=== PATIENT | female | born 1960 | race African-American/Black ===

== ENCOUNTER 2018-02-14 17:44 | Emergency (ER) | payer BC, OTHER ==
[2018-02-14 18:07] VITALS: BP 118/72; PULSE 87; TEMP 99; BMI 39.9
--- NOTE | 2018-02-14 19:28 | PDOC ---
History of Present Illness - General Chief Complaint: Pain Stated Complaint: LEFT KNEE PAIN Time Seen by Provider: 02/14/18 18:54 - History of Present Illness Initial Comments: 02/14/18 19:23 57-year-old female presents for evaluation of left knee pain after a fall about a week ago. She states she fell she didn't have that much pain however her knee began to swell and he come increasingly stiff on her. Past History - Past Medical History Allergies/Adverse Reactions: Allergies Allergy/AdvReac Type Severity Reaction Status Date / Time No Known Allergies Allergy Verified 02/14/18 18:04 Home Medications: Ambulatory Orders Azithromycin [Zithromax Z-RICARDO (5 DAYS) -] 250 mg PO ASDIR #6 tablet 06/24/12 No Home Medications 0 dose .ROUTE UTDICT 06/24/12 Ibuprofen [Motrin -] 600 mg PO TID #30 tablet 02/14/18 - Immunization History Immunization Up to Date: Yes - Suicide/Smoking/Psychosocial Hx Smoking Status: No Smoking History: Never smoked Number of Cigarettes Smoked Daily: 0 Cigars Per Day: 0 Hx Alcohol Use: No Drug/Substance Use Hx: No Review of Systems - Review of Systems Musculoskeletal: Yes: See HPI, Joint Pain All Other Systems: Reviewed and Negative *Physical Exam - Vital Signs Last Vital Signs Temp Pulse Resp BP Pulse Ox 99.0 F 87 20 118/72 979 H 02/14/18 18:04 02/14/18 18:04 02/14/18 18:04 02/14/18 18:04 02/14/18 18:04 - Physical Exam Comments: 02/14/18 19:24 Left knee skin color and temperature are normal there is a small superficial abrasion on the anterior medial aspect of the left knee. There is a prepatellar effusion. No intra-articular effusion is appreciated. No mediolateral joint line tenderness. There is mild tenderness about the anterior aspect of the patella. Her extensor mechanism is intact. No evidence of instability thigh and The soft and nontender normal hip and ankle range of motion negative straight leg raise test. She's neurovascularly intact. ED Treatment Course - RADIOLOGY Radiology Studies Ordered: Category Date Time Status KNEE 3 POS-LEFT [RAD] Stat Radiology 02/14/18 18:56 Completed Medical Decision Making - Medical Decision Making 02/14/18 19:25 Aseptically the knee was prepped with Betadine away from the area of the abrasion at the at the anterior lateral aspect of the patella. 25 mL of searing when his foot was aspirated a dry sterile dressing and a compression wrap were placed. This was tolerated well and done without complication. Post procedure and instructions were given. She'll wrap to sleep I will place her on a short course of anti-inflammatories and have her follow-up with orthopedic surgery *DC/Admit/Observation/Transfer Diagnosis at time of Disposition: Knee contusion, Prepatellar bursitis of left knee - Discharge Dispostion Disposition: HOME Condition at time of disposition: Stable Decision to Admit order: No - Referrals Referrals: Julia Dias MD [Primary Care Provider] - Chico Wilson MD [Staff Physician] - - Patient Instructions Additional Instructions: Return to the emergency room should symptoms worsen or go unresolved. I've placed on a short course of an anti-inflammatory. One tablet 3 times a day with food. Please discontinue the medication if it bothers her stomach. Follow-up with orthopedic surgery in 2-3 days for further evaluation and treatment options. Do not sleep with a compression wrap that I have applied today on your leg. Removed the before bedtime. - Post Discharge Activity
== END 2018-02-14 19:43 | disposition home or self-care (01) ==
LOC: JERFT 17:44
DX: S80.02XA Contusion of left knee, initial encounter (principal); S80.212A Abrasion, left knee, initial encounter; W19.XXXA Unspecified fall, initial encounter; Y93.89 Activity, other specified; Y92.89 Other specified places as the place of occurrence of the external cause; Y99.8 Other external cause status; M70.42 Prepatellar bursitis, left knee
CPT/HCPCS: 73562-TC-LT-FY; 99281-25

== ENCOUNTER 2018-02-23 15:33 | Emergency (ER) | payer OTHER ==
--- NOTE | 2018-02-23 15:51 | PDOC ---
Rapid Medical Evaluation Chief Complaint: Injury Time Seen by Provider: 02/23/18 15:46 Medical Evaluation: Allergies Allergy/AdvReac Type Severity Reaction Status Date / Time No Known Allergies Allergy Verified 02/14/18 18:04 02/23/18 15:46 I have performed a brief in person evaluation of this patient. The patient presents with a CC of: left pain Pt is a 57 YO female who states she was evaluated here last week and had her "knee drained." She states that the edema and pain have returned. She states the area is erythematous. Denies fever/chills. Denies hx of DM. Pain 06/04 PE: Ambulated to exam room. Skin: over left knee is warm to the touch, flesh colored Lungs: Clear Heart: RRR MS: focused on the left knee. Pt has moderate effusion. Pt can flex and extend without difficulty Psych: Age appropriate. The patient will proceed to the ED for further evaluation. Discharge Disposition - Diagnosis Knee effusion, left - Referrals Referrals: Julia Dias MD [Primary Care Provider] - - Patient Instructions - Post Discharge Activity
[2018-02-23 15:54] VITALS: BP 136/81; PULSE 69; TEMP 98.4; BMI 39.9
--- NOTE | 2018-02-23 16:47 | PDOC ---
Attending Attestation - Resident Resident Name: Bill Reid - ED Attending Attestation I have performed the following: I have examined & evaluated the patient, The case was reviewed & discussed with the resident, I agree w/resident's findings & plan, Exceptions are as noted - HPI HPI: 02/23/18 17:46 Ms Danny Figueredo is a 57 yo F who presents to the ER for evaluation of left knee pain Briefly, she fell approximately 2 weeks ago. She was seen in urgent care on where she noted knee swelling S/p knee drainage Pt reports increased swelling No limitations in range of motion She has pain with bearing weight No fevers or chills No additional traumatic injuries - Physicial Exam PE: 02/23/18 17:58 GENERAL: The patient is in no acute distress. LUNGS: Breath sounds equal, clear to auscultation bilaterally. No wheezes, and no crackles. HEART:Regular rate and rhythm ABDOMEN: Soft, nontender EXTREMITIES: Normal range of motion, Left knee swollen, no erythema anterior and lateral to the patella, soft swelling noted Pt leg warm, no calf swelling noted NEUROLOGICAL: Cranial nerves II through XII grossly intact. Normal speech. No focal neurological deficits. SKIN: no rash or skin lesions - Medical Decision Making 02/23/18 17:59 57 yo F s/p injury to the knee with resulting ?prepatellar bursitis Bursa drained Pt presents with recurrence of swelling No signs of septic bursitis ? fluid re accumulation Will consult ortho Will plan to d/c home
[2018-02-23] MEDS ORDERED: IBUPROFEN 600 MG TABLET (FP) PO ONE ×2 (16:48→17:39)
--- NOTE | 2018-02-23 17:51 | PDOC ---
History of Present Illness - General Chief Complaint: Injury Stated Complaint: RIGHT KNEE PAIN Time Seen by Provider: 02/23/18 15:46 History Source: Patient Exam Limitations: No Limitations - History of Present Illness Initial Comments: 02/23/18 18:19 Pt is a 57yo f with no significant PMH presenting to ED with L knee swelling and pain with weight bearing. Pt fell a few weeks ago and was seen in ED one week ago on February 14. Knee was drained (25cc). Pt was dc home with ortho follow up. Pt returns today for similar complaints. She was unable to make ortho appointment. She denies decreased ROM, pain with ROM, fever, chills, pain/ swelling in other joints. Pt just admits to pain when standing. PMD: [place] PMH: none PSH: none Meds: ibuprofen 600mg last taken yesterday Allergies: nkda Past History - Past Medical History Allergies/Adverse Reactions: Allergies Allergy/AdvReac Type Severity Reaction Status Date / Time No Known Allergies Allergy Verified 02/23/18 15:47 Home Medications: Ambulatory Orders No Home Medications 0 dose .ROUTE UTDICT 06/24/12 COPD: No - Immunization History Immunization Up to Date: Yes - Suicide/Smoking/Psychosocial Hx Smoking Status: No Smoking History: Never smoked Number of Cigarettes Smoked Daily: 0 Cigars Per Day: 0 Hx Alcohol Use: No Drug/Substance Use Hx: No Substance Use Type: None *Physical Exam - Vital Signs Last Vital Signs Temp Pulse Resp BP Pulse Ox 98.4 F 69 16 136/81 98 02/23/18 15:47 02/23/18 15:47 02/23/18 15:47 02/23/18 15:47 02/23/18 15:47 - Physical Exam Musculoskeletal: positive: Other (L lateral knee effusion, fluctuant, not erythematous, slightly warm, pre-patellar. ) ED Treatment Course - RADIOLOGY Radiology Studies Ordered: Category Date Time Status KNEE 4 POS-LEFT [RAD] Stat Radiology 02/23/18 16:48 Taken - Medications Given in the ED: ED Medications Discontinued Medications Generic Name Dose Route Start Last Admin Trade Name Freq PRN Reason Stop Dose Admin Ibuprofen 600 mg 02/23/18 16:48 02/23/18 17:45 Motrin - PO 02/23/18 16:49 600 mg ONCE ONE Administration Medical Decision Making - Medical Decision Making Pt is a 57yo f with no significant PMH presenting to ED with L knee swelling and pain with weight bearing. Pt fell a few weeks ago and was seen in ED one week ago on February 14. Knee was drained (25cc). Vitals: 136/81, HR69, RR16, 98%RA T98.4 PE: balloting of knee, slightly more warm compared to R knee, fluctuant, no overlying erythema, full ROM. No pain with passive or active ROM. No other joint effusion/swelling. DDx: effusion, fracture, bursitis, septic arthritis Low suspicion for septic arthritis given pt has full rom without pain, no overylying erythema and no fever. Pt is ambulatory, pain with weight-bearing only. -Will order Xray and give pt 600mg ibuprofen. 02/23/18 17:[address] Michele/Dr. Olivares office. Awaiting call back 02/23/18 18:30 Per ortho, low suspicion for infection. Options include draining with culture and gram stain + knee immobilizer or knee immobilizer and ortho follow up. Will discuss with patient 02/23/18 19:00 Ortho team drained fluid. Sent to lab for gram stain and culture. If gram stain negative, pt can be dc and f/u ortho in 1 week. If positive, will admit for iv abx. Signed out to night team *DC/Admit/Observation/Transfer Diagnosis at time of Disposition: Knee effusion, left - Discharge Dispostion Disposition: HOME Condition at time of disposition: Improved - Referrals Referrals: Julia Dias MD [Primary Care Provider] - David Olivares DO [Staff Physician] - Dawood Jeronimo DO [Staff Physician] - - Patient Instructions Printed Discharge Instructions: DI for Knee Effusion Additional Instructions: You were seen here for knee effusion. It was drained. It did not have bacteria in it. Please follow up with Dr. Jeronimo or Dr. Olivares in clinic in one week. You can call and make an appointment: Try to keep weight off the knee, but keep moving it around. Keep the immobilizer on when you are on your feet You can continue to take ibuprofen for pain. Come back to the emergency room if: pain gets worse, swelling is worse, you develop fever, you notice a rash or if any new concerning symptom develops. Thank you - Post Discharge Activity
[2018-02-23] MEDS ORDERED: LIDOCAINE HCL 1%, 10 MG/ML (50 mL VIAL) SQ ONE (18:38)
[2018-02-23] MEDS ORDERED: LIDOCAINE HCL 1%, 10 MG/ML (20ML VIAL) ONE (18:39)
--- NOTE | 2018-02-23 19:00 | CONSULT ---
Consult Consult Specialty:: Orthopedic Surgery Reason for Consultation:: Left knee pain and swelling - History of Present Illness Chief Complaint: Left knee pain and swelling History of Present Illness: Ariana Figueredo is a 57 year old female with no significant PMH. She presents to the ED with complains of left knee pain and swelling. She sustained a fall on 02/01/2018 while power walking and landed on her left knee. She was able to get up and ambulate after the fall. She noticed her left knee swell up a few days later and went to the [facility] ED on 02/14/2018 after there was no improvement in her symptoms. She was diagnosed with a knee contusion and prepatellar bursitis. He knee was aspirated and 25 mL of fluid was removed. According to the patient the fluid aspirated was "bloody." She was discharged home with ibuprofen and an laura wrap. Her knee pain improved but it became painful again a few days ago. She has been wrapping her knee daily and taking ibuprofen as prescribed without any improvement in symptoms. She has been able to weight bear and go to work. She works for the [employer] company. She denies any fever, chills, pain/swelling in other joints. - History Source History Provided By: Patient, Medical Record - Past Medical History Reproductive: Yes: Fibroids (History of fibroidectomy. No complications with anesthesia reported) Musculoskeletal: Yes: Other (history of right knee pain. Denies any complaints currently) - Past Surgical History Additional Surgical History: Fibroidectomy - Alcohol/Substance Use Hx Alcohol Use: No History of Substance Use: reports: None - Smoking History Smoking history: Never smoked Aproximately how many cigarettes per day: 0 - Social History ADL: Independent Occupation: aircraft worker Place of : [facility] [place] Home Medications - Allergies Allergies/Adverse Reactions: Allergies Allergy/AdvReac Type Severity Reaction Status Date / Time No Known Allergies Allergy Verified 02/23/18 15:47 - Home Medications Home Medications: Ambulatory Orders No Home Medications 0 dose .ROUTE UTDICT 06/24/12 Family Disease History - Family Disease History Family History: Denies Review of Systems - Review of Systems Constitutional: reports: No Symptoms Eyes: reports: No Symptoms HENT: reports: No Symptoms Neck: reports: No Symptoms Cardiovascular: reports: No Symptoms Respiratory: reports: No Symptoms Gastrointestinal: reports: No Symptoms Genitourinary: reports: No Symptoms Breasts: reports: No Symptoms Reported Musculoskeletal: reports: Joint Pain (as above), Joint Swelling Integumentary: reports: No Symptoms Neurological: reports: No Symptoms Endocrine: reports: No Symptoms Hematology/Lymphatic: reports: No Symptoms Psychiatric: reports: No Symptoms Physical Exam Vital Signs: Vital Signs Temperature 98.4 F 02/23/18 15:47 Pulse Rate 69 02/23/18 15:47 Respiratory Rate 16 02/23/18 15:47 Blood Pressure 136/81 02/23/18 15:47 O2 Sat by Pulse Oximetry (%) 98 02/23/18 15:47 Constitutional: Yes: Well Nourished, No Distress, Calm Cardiovascular: Yes: Regular Rate and Rhythm Respiratory: Yes: Regular Gastrointestinal: Yes: Soft Musculoskeletal: Yes: Joint Swelling (Examination of the left knee reveals a prepatellar effusion, intraarticular effusion and swelling of the proximal leg. The skin is warm, dry and intact; no lesion, rashes or ulcers noted. Muscle mass equal and symmetric to contralateral side. No atrophy noted. No masses noted. Positive tenderness to palpation over the patella. No cords or calf tenderness. No significant ankle edema. Full passive and active range of motion with mild pain with full flexion. Joint stable with no pathologic laxity. EHL/TA /GS motor intact. SITLT distally; 2+ DP pulses; Cap refill brisk. Painless range of motion and no TTP left hip or ankle. Patient able to SLR. Compartments soft and compressible) Extremities: Yes: WNL, Other ( Right Upper Extremity: Skin warm, dry, and intact ; no lesions, rashes or ulcers noted. Muscle mass equal and symmetric to contralateral side. No atrophy noted. No masses or effusions noted. No tenderness to palpation. Full passive and active ROM, free from pain. Joints stable with no pathologic laxity.M/R/U/MSK/AX motor intact; SILT distally; 2+ radial pulses; Cap refill brisk. Left Upper Extremity: Skin warm, dry, and intact; no lesions, rashes or ulcers noted. Muscle mass equal and symmetric to contralateral side. No atrophy noted. No masses or effusions noted. No tenderness to palpation. Full passive and active ROM, free from pain. Joints stable with no pathologic laxity.M/R/U/MSK/AX motor intact; SILT distally; 2+ radial pulses; Cap refill brisk. Right Lower Extremity: Skin warm , dry, and intact; no lesions, rashes or ulcers noted. Muscle mass equal and symmetric to contralateral side. No atrophy noted. No masses or effusions noted. No tenderness to palpation. No cords or calf tenderness. No significant calf/ankle edema. Full passive and active ROM, free from pain. Joints stable with no pathologic laxity.EHL/TA/GS motor intact; SILT distally; 2+ DP pulses; Cap refill brisk. Compartment soft and compressible upper and lower extremities.) Imaging - Results X-ray: Image Reviewed (Radiographs of the left knee were reviewed by me today. AP, lateral and sunrise views of the left knee show soft tissue swelling anterior to the patella. There is mild medial compartment and moderate patellofemoral compartment joint space narrowing with osteophyte formation. There is no fracture or dislocation.) Assessment/Plan Ariana Delgado is a 57 year old female with a left knee prepatellar bursitis and knee effusion. We discussed this diagnosis with the patient. We discussed treatment options including knee aspiration to rule out infection. The patient elected to proceed. Procedure Note for Left Knee Arthrocentesis. Consent was obtained after discussion of the risks, benefits, alternatives including bleeding, pain, infection, skin disruption. Laterality was confirmed ( timeout). The lateral aspect of the knee was prepped with betadyne. The subcutaneous tissue in the superolateral aspect of the knee was infiltrated with 3 mL of 1% lidocaine. A new needle was then introduced into the superolateral aspect of the knee and 40 mL of serosanguinous fluid was aspirated from the knee joint and prepatellar bursa. The site was cleaned and dressed with gauze and an laura wrap. A knee immobilizer was placed on the extremity. Recommendations -Follow up aspiration gram stain and cultures. May discharge home if gram stain negative. -WBAT in knee immobilizer. -Pain control All questions were answered. Thank you for involving our team in the care of this patient. If gram stain negative the patient can follow up in our office in 1 week after discharge. Please call me with any questions [phone]. David Olivares, DO Orthopedic Surgery
--- NOTE | 2018-02-23 19:20 | PDOC ---
*Physical Exam - Vital Signs Last Vital Signs Temp Pulse Resp BP Pulse Ox 98.4 F 69 16 136/81 98 02/23/18 15:47 02/23/18 15:47 02/23/18 15:47 02/23/18 15:47 02/23/18 15:47 ED Treatment Course - Medications Given in the ED: ED Medications Discontinued Medications Generic Name Dose Route Start Last Admin Trade Name Chaz PRN Reason Stop Dose Admin Ibuprofen 600 mg 02/23/18 16:48 02/23/18 17:45 Motrin - PO 02/23/18 16:49 600 mg ONCE ONE Administration Lidocaine HCl 5 ml 02/23/18 18:38 02/23/18 18:56 Xylocaine 1% SQ 02/23/18 18:39 5 ml ONCE ONE Administration Medical Decision Making - Medical Decision Making 02/23/18 19:[address] Jeronimo and Marshall regarding patients plan. Would like ancef started if positive stain, otherwise if negative, send home without antibiotics *DC/Admit/Observation/Transfer Diagnosis at time of Disposition: Knee effusion, left - Discharge Dispostion Disposition: HOME Condition at time of disposition: Improved - Referrals Referrals: Juila Dias MD [Primary Care Provider] - Dawood Jeronimo DO [Staff Physician] - David Olivares DO [Staff Physician] - - Patient Instructions Printed Discharge Instructions: DI for Knee Effusion Additional Instructions: You were seen here for knee effusion. It was drained. It did not have bacteria in it. Please follow up with Dr. Jeronimo or Dr. Olivares in clinic in one week. You can call and make an appointment: Try to keep weight off the knee, but keep moving it around. Keep the immobilizer on when you are on your feet You can continue to take ibuprofen for pain. Come back to the emergency room if: pain gets worse, swelling is worse, you develop fever, you notice a rash or if any new concerning symptom develops. Thank you - Post Discharge Activity
== END 2018-02-23 23:43 | disposition home or self-care (01) ==
LOC: JERFT 15:33 → JER 15:33
PROC: 0S9D3ZZ Drainage of Left Knee Joint, Percutaneous Approach (ICD-10-PCS; principal; 2018-02-23)
PROC: 2W3RXYZ Immobilization of Left Lower Leg using Other Device (ICD-10-PCS; 2018-02-23)
DX: M25.462 Effusion, left knee (principal)
CPT/HCPCS: 73564-TC-LT-FY; 87070; 87075; 87205; 99282-25

== ENCOUNTER 2018-10-20 20:50 | Emergency (ER) | payer OTHER ==
[2018-10-20 20:57] VITALS: TEMP 99.6; BMI 39.9
[2018-10-20] MEDS ORDERED: IBUPROFEN 600 MG TABLET (FP) PO ONE ×2 (20:57→21:53)
--- NOTE | 2018-10-20 20:59 | PDOC ---
Rapid Medical Evaluation Chief Complaint: Redness To Affected Area Time Seen by Provider: 10/20/18 20:55 Medical Evaluation: Allergies Allergy/AdvReac Type Severity Reaction Status Date / Time No Known Allergies Allergy Verified 10/20/18 20:57 Vital Signs Temp Pulse Resp BP Pulse Ox 99.6 F 110 H 18 127/79 96 10/20/18 20:54 10/20/18 20:54 10/20/18 20:54 10/20/18 20:54 10/20/18 20:54 10/20/18 20:58 I have performed a brief in-person evaluation of this patient. The patient presents with a chief complaint of: bump to leg Pertinent physical exam findings:stable and in NAD, non-focal I have ordered the following:labs, motrin The patient will proceed to the ED for further evaluation.
[2018-10-20] MEDS ORDERED: CEPHALEXIN MONOHYDRATE 500 MG CAPSULE (UD) PO ONE (22:23)
[2018-10-20] MEDS ORDERED: SULFAMETHOXAZOLE/TRIMETHOPRIM 800MG/160MG D.S. TABLET PO ONE (22:24)
[2018-10-20 22:27] LABS: BASO % 0.8 % (0-2.0); EOS % 0.2 % (0-4.5); HEMATOCRIT 38.3 % (32.4-45.2); HEMOGLOBIN 12.7 GM/dL (10.7-15.3); LYMPH % 27.2 % (8-40); MCH 29.5 pg (25.7-33.7); MCHC 33.1 g/dl (32.0-36.0); MEAN CELL VOLUME 89.1 fl (80-96); MEAN PLT VOLUME 8.6 fl (7.5-11.1); MONO % 11.6 % (3.8-10.2); NEUT % 60.2 % (42.8-82.8); PLATELET COUNT 258 K/MM3 (134-434); RDW 13.7 % (11.6-15.6); WHITE BLOOD COUNT 4.2 K/mm3 (4.0-10.0)
[2018-10-20] MEDS ORDERED: CEPHALEXIN MONOHYDRATE 500 MG CAPSULE (UD) ONE (22:32)
[2018-10-20] MEDS ORDERED: SULFAMETHOXAZOLE/TRIMETHOPRIM 800MG/160MG D.S. TABLET ONE (22:32)
[2018-10-20 23:02] LABS: ALBUMIN 3.8 g/dl (3.4-5.0); BILIRUBIN,TOTAL 0.4 mg/dL (0.2-1); BLOOD UREA NITROGEN 13.4 mg/dL (7-18); CALCIUM 8.6 mg/dL (8.5-10.1); CREATININE 0.8 mg/dL (0.55-1.3); TOT PROT 7.7 g/dl (6.4-8.2)
[2018-10-20] MEDS ORDERED: ACETAMINOPHEN 1000 MG/100 ML VIAL (NON FORMULARY) IVPB ONE (23:02)
[2018-10-20 23:03] LABS: POTASSIUM 4.4 mmol/L (3.5-5.1)
[2018-10-20] MEDS ORDERED: ACETAMINOPHEN INJECTION 100 ML IVPB ONE (23:04)
[2018-10-20 23:18] LABS: PLATELET ESTIMATE ADEQUATE
--- NOTE | 2018-10-20 23:44 | PDOC ---
Documentation entered by Genaro Escobar SCRIBE, acting as scribe for Jordan Lizarraga MD. Jordan Lizarraga MD: This documentation has been prepared by the Luz layton Xhesika, SCRIBE, under my direction and personally reviewed by me in its entirety. I confirm that the documentation accurately reflects all work, treatment, procedures, and medical decision making performed by me. History of Present Illness - General Chief Complaint: Redness To Affected Area Stated Complaint: L/LEG DISCOMFORT/SWOLLEN Time Seen by Provider: 10/20/18 20:55 History Source: Patient Exam Limitations: No Limitations - History of Present Illness Initial Comments: 10/20/18 22:25 The patient is a 57 year old female, with no significant PMH of who presents to the emergency department with 3 days of L buttock lesion that has progressively gotten worse. The patient reports chills and fever with tmax of 102 since Tuesday. The patient states the lesion is painful to sit on, however, Motrin and warm compressions have alleviated the pain. The patient denies recent travels, also denies shaving around the area. She reports a previous similar lesion in the past but states it went away with warm compresses. The patient denies chest pain, shortness of breath, headache and dizziness. Denies stiff neck, neck pain, rashes. Dneies cough, runny nose, sinus pain. Denies nausea, vomiting, diarrhea and constipation. Denies dysuria, frequency, urgency and hematuria. Allergies: NKA PCP: Ron Colby Past History - Past Medical History Allergies/Adverse Reactions: Allergies Allergy/AdvReac Type Severity Reaction Status Date / Time No Known Allergies Allergy Verified 10/20/18 20:57 Home Medications: Ambulatory Orders No Home Medications 0 dose .ROUTE UTDICT 06/24/12 Cephalexin [Keflex] 500 mg PO Q6H #28 capsule 10/21/18 Sulfamethoxazole/Trimethoprim [Bactrim Ds Tablet] 1 each PO BID #14 tablet 10/21 COPD: No - Immunization History Immunization Up to Date: Yes - Suicide/Smoking/Psychosocial Hx Smoking Status: No Smoking History: Never smoked Number of Cigarettes Smoked Daily: 0 Cigars Per Day: 0 Hx Alcohol Use: No Drug/Substance Use Hx: No Substance Use Type: None Review of Systems - Review of Systems Able to Perform ROS?: Yes Comments:: 10/20/18 22:25 GENERAL/CONSTITUTIONAL: (+) fevers. (+) chills. (+) sweats. No weakness. HEAD, EYES, EARS, NOSE AND THROAT: No change in vision. No ear pain or discharge. No sore throat. CARDIOVASCULAR: No chest pain or shortness of breath. RESPIRATORY: No cough, wheezing, or hemoptysis. GASTROINTESTINAL: No nausea, vomiting, diarrhea or constipation. GENITOURINARY: No dysuria, frequency, or change in urination. MUSCULOSKELETAL: No joint or muscle swelling or pain. No neck or back pain. SKIN: (+) L buttock lesion. NEUROLOGIC: No headache, vertigo, loss of consciousness, or change in strength/ sensation. ENDOCRINE: No increased thirst. No abnormal weight change. HEMATOLOGIC/LYMPHATIC: No anemia, easy bleeding, or history of blood clots. ALLERGIC/IMMUNOLOGIC: No hives or skin allergy. *Physical Exam - Vital Signs Last Vital Signs Temp Pulse Resp BP Pulse Ox 99.6 F 110 H 18 127/79 96 10/20/18 20:54 10/20/18 20:54 10/20/18 20:54 10/20/18 20:54 10/20/18 20:54 - Physical Exam Comments: 10/20/18 23:13 GENERAL: Awake, alert, and fully oriented, in no acute distress. Pleasant, watching videos on phone. EYES: PERRLA, EOMI, sclera anicteric, conjunctiva clear ENT: Auricles normal inspection, hearing grossly normal, nares patent, oropharynx clear without exudates. Moist mucosa NECK: Normal ROM, supple, no lymphadenopathy, JVD, or masses LUNGS: Breath sounds equal, clear to auscultation bilaterally. No wheezes, and no crackles HEART: Regular rate and rhythm, normal S1 and S2, no murmurs, rubs or gallops ABDOMEN: Soft, nontender, normoactive bowel sounds. No guarding, no rebound. No masses EXTREMITIES: Normal range of motion, no edema. No clubbing or cyanosis. No cords, erythema, or tenderness. WWP, 2+ pulses peripherally. NEUROLOGICAL: Normal speech, cranial nerves intact, equal strength and sensation b/l. Normal gait. SKIN: L buttock with 2 x 2 cm erythematous tender inudrated lesion with superficial central non draining ulcer. No fluctuance. ED Treatment Course - LABORATORY CBC & Chemistry Diagram: 10/20/18 22:00 10/20/18 22:00 - ADDITIONAL ORDERS Additional order review: Laboratory Results 10/20/18 22:00 Lactic Acid 1.1 10/20/18 22:00 RBC 4.30 MCV 89.1 MCHC 33.1 RDW 13.7 MPV 8.6 Neutrophils % 60.2 Lymphocytes % 27.2 Monocytes % 11.6 H Eosinophils % 0.2 Basophils % 0.8 - Medications Given in the ED: ED Medications Discontinued Medications Generic Name Dose Route Start Last Admin Trade Name Freq PRN Reason Stop Dose Admin Ibuprofen 600 mg 10/20/18 20:57 10/20/18 22:04 Motrin - PO 10/20/18 20:58 600 mg ONCE ONE Administration Medical Decision Making - Medical Decision Making 10/20/18 23:21 57yo F presents to the ED with cellulitis to L buttock. No fluctuance or area requiring drainage at this time Vitals with tachycardia, fever Labs wnl, no leukocytosis, lactic neg No other sources of infection and pt is over well appearing, non toxic Will cover with bactrim/keflex, recheck vitals after antipyretic 10/21/18 00:28 Vitals have normalized Pt is feeling better Requests DC home Pt to f/u in 48 hours for a wound check Well appearing, clinically stable for DC home I discussed the physical exam findings, ancillary test results and final diagnoses with the patient. I answered all of the patient's questions. The patient was satisfied with the care received and felt comfortable with the discharge plan and treatment plan. The patient will call their primary care physician within 24 hours to arrange follow-up and will return to the Emergency Department with any new, persistent or worsening symptoms. *DC/Admit/Observation/Transfer Diagnosis at time of Disposition: Cellulitis - Discharge Dispostion Disposition: HOME Condition at time of disposition: Stable Decision to Admit order: No - Prescriptions Prescriptions: Cephalexin [Keflex] 500 mg PO Q6H #28 capsule Sulfamethoxazole/Trimethoprim [Bactrim Ds Tablet] 1 each PO BID #14 tablet - Referrals Referrals: Ron Elizalde MD [Primary Care Provider] - - Patient Instructions Printed Discharge Instructions: DI for Cellulitis -- Adult Additional Instructions: You were found to have cellulitis which is an infection in the skin Take the antibiotics as prescribed Return in 48 hours for a wound check Return earlier if you have any new, worsening, or concerning symptoms such as persistent fevers or vomiting. - Post Discharge Activity - Attestations Physician Attestion: 10/21/18 00:39 I, Dr. Jordan Lizarraga MD, attest that this document has been prepared under my direction and personally reviewed by me in its entirety. I further attest, that it accurately reflects all work, treatment, procedures and medical decision -making performed by me.
[2018-10-20 23:59] VITALS: BP 121/65; PULSE 82
== END 2018-10-21 00:52 | disposition home or self-care (01) ==
LOC: JER 20:50
PROC: 3E033NZ Introduction of Analgesics, Hypnotics, Sedatives into Peripheral Vein, Percutaneous Approach (ICD-10-PCS; principal; 2018-10-20)
DX: L03.317 Cellulitis of buttock (principal)
CPT/HCPCS: 36415; 80053; 83605; 85025; 87040; 99281-25; J0131

== ENCOUNTER 2018-10-23 00:18 | Emergency (ER) | payer OTHER ==
[2018-10-23 01:06] VITALS: BP 125/74; PULSE 84; TEMP 98.4; BMI 39.9
--- NOTE | 2018-10-23 02:07 | PDOC ---
Suture Removal/Wound Check HPI - History of Present Illness Chief Complaint: Revisit,Wound Recheck Stated Complaint: ER FOLLOW-UP History Source: Yes: Patient Exam Limitations: Yes: No Limitations Date of Last ED visit: 10/20/18 Past History - Past Medical History Allergies/Adverse Reactions: Allergies Allergy/AdvReac Type Severity Reaction Status Date / Time No Known Allergies Allergy Verified 10/23/18 01:06 Home Medications: Ambulatory Orders No Home Medications 0 dose .ROUTE UTDICT 06/24/12 Cephalexin [Keflex] 500 mg PO Q6H #28 capsule 10/21/18 Sulfamethoxazole/Trimethoprim [Bactrim Ds Tablet] 1 each PO BID #14 tablet 10/21 COPD: No - Immunization History Immunization Up to Date: Yes - Suicide/Smoking/Psychosocial Hx Smoking Status: No Smoking History: Never smoked Have you smoked in the past 12 months: No Number of Cigarettes Smoked Daily: 0 Cigars Per Day: 0 Information on smoking cessation initiated: No Hx Alcohol Use: No Drug/Substance Use Hx: No Substance Use Type: None *Physical Exam - Vital Signs Last Vital Signs Temp Pulse Resp BP Pulse Ox 98.4 F 84 17 125/74 97 10/23/18 00:20 10/23/18 00:20 10/23/18 00:20 10/23/18 00:20 10/23/18 00:20 Medical Decision Making - Medical Decision Making 10/23/18 02:28 Patient is a 57-year-old female with no past medical history was seen in the emergency room on 10/20/2018 for cellulitis to her left buttocks associated with fever. She is here today for wound check. She has no complaints of fever however she states she still has body aches mostly on the right side, and still has pain to the buttocks. Also complains of headache which is frontal since ill. States she takes Motrin last dose was this morning and her headache goes away but now feels like it's coming back. She has not taken any Motrin since this morning. PMD: Dr. Abreu PMHX: neg PSOCHX: neg etoh, drug, cig ALL: NKDA Selected Entries 10/23/18 00:20 Temperature 98.4 F Pulse Rate 84 Respiratory 17 Rate Blood Pressure 125/74 O2 Sat by Pulse 97 Oximetry (%) GENERAL/CONSTITUTIONAL: No fever or chills. No weakness. No weight change. HEAD, EYES, EARS, NOSE AND THROAT: No change in vision. No ear pain or discharge. No sore throat. CARDIOVASCULAR: No chest pain or shortness of breath. RESPIRATORY: No cough, wheezing, or hemoptysis. GASTROINTESTINAL: No nausea, vomiting, diarrhea or constipation. No rectal bleeding. GENITOURINARY: No dysuria, frequency, or change in urination. MUSCULOSKELETAL: No joint or muscle swelling or pain. No neck or back pain. SKIN AND BREASTS: No rash or easy bruising. NEUROLOGIC: (+) headache, (-) vertigo, loss of consciousness, or loss of sensation. PSYCHIATRIC: No depression or anxiety. ENDOCRINE: No increased thirst. No abnormal weight change. HEMATOLOGIC/LYMPHATIC: No anemia, easy bleeding, or history of blood clots. ALLERGIC/IMMUNOLOGIC: No hives or skin allergy. No latex allergy. GENERAL: The patient is awake, alert, and fully oriented, in no acute distress. HEAD: Normal with no signs of trauma. EYES: Pupils equal, round and reactive to light, extraocular movements intact, sclera anicteric, conjunctiva clear. ENT: Ears normal, nares patent, oropharynx clear without exudates. Moist mucous membranes. NECK: Normal range of motion, supple without lymphadenopathy, JVD, or masses. LUNGS: Breath sounds equal, clear to auscultation bilaterally. No wheezes, and no crackles. HEART: Regular rate and rhythm, normal S1 and S2 without murmur, rub. ABDOMEN: Soft, nontender, normoactive bowel sounds. No guarding, no rebound. No masses. EXTREMITIES: Normal range of motion, no edema. No clubbing or cyanosis. No cords, erythema, or tenderness. NEUROLOGICAL: Cranial nerves II through XII grossly intact. Normal speech, normal gait. PSYCH: Normal mood, normal affect. SKIN: Small 2 mm ulcerated center with blackened edges wound with surrounding cellulitis 2 cm, mild tenderness to palpation. A/P: Wound check with continued cellulitis, no lymphangitis noted. The patient continued antibiotics as prescribed, warm compresses to the area. note for work to be out until 10/24/18 *DC/Admit/Observation/Transfer Diagnosis at time of Disposition: Wound of cheek Qualifiers: Encounter type: subsequent encounter Laterality: left Qualified Code(s): S01.402D - Unspecified open wound of left cheek and temporomandibular area, subsequent encounter - Discharge Dispostion Disposition: HOME Condition at time of disposition: Stable - Referrals Referrals: Ron Elizalde MD [Primary Care Provider] - - Patient Instructions Printed Discharge Instructions: DI for Wound Infection Additional Instructions: Your Discharge Instructions: You must call primary care physician within 24 hours to arrange follow-up. Return to the Emergency Department with any new, persistent or worsening symptoms, for fever, chills, SOB, dizziness or any other concerning changes that may occur. - Post Discharge Activity Forms/Work/School Notes: Back to Work
--- NOTE | 2018-10-23 02:23 | PDOC ---
*Physical Exam - Vital Signs Last Vital Signs Temp Pulse Resp BP Pulse Ox 98.4 F 84 17 125/74 97 10/23/18 00:20 10/23/18 00:20 10/23/18 00:20 10/23/18 00:20 10/23/18 00:20 Medical Decision Making - Medical Decision Making 10/23/18 02:29 Case reviewed, agree with assessment and plan *DC/Admit/Observation/Transfer Diagnosis at time of Disposition: Wound of cheek Qualifiers: Encounter type: subsequent encounter Laterality: left Qualified Code(s): S01.402D - Unspecified open wound of left cheek and temporomandibular area, subsequent encounter - Discharge Dispostion Disposition: HOME Condition at time of disposition: Stable - Referrals Referrals: Ron Elizalde MD [Primary Care Provider] - - Patient Instructions Printed Discharge Instructions: DI for Wound Infection Additional Instructions: Your Discharge Instructions: You must call primary care physician within 24 hours to arrange follow-up. Return to the Emergency Department with any new, persistent or worsening symptoms, for fever, chills, SOB, dizziness or any other concerning changes that may occur. - Post Discharge Activity Forms/Work/School Notes: Back to Work
== END 2018-10-23 02:30 | disposition home or self-care (01) ==
LOC: JER 00:18
DX: Z09 Encounter for follow-up examination after completed treatment for conditions other than malignant neoplasm (principal); L03.317 Cellulitis of buttock
CPT/HCPCS: 99281-25